=== PATIENT | female | born 1975 | race Two or more races ===

== ENCOUNTER 2017-11-28 23:22 | Emergency (ER) | payer OTHER ==
[~2017-11-28] VITALS: Ht 154.9 cm; Wt 70.3 kg
[2017-11-28] MEDS ORDERED: BP MEDS (23:30)
[2017-11-28] MEDS ORDERED: GLIPIZIDE5 MG ORAL (23:30)
[2017-11-28 23:40] VITALS: BP 124/88
[2017-11-28] MEDS ORDERED: GABAPENTIN300 MG ORAL (23:52)
--- NOTE | 2017-11-28 23:53 | Emergency Room Report ---
History of Present Illness General Chief Complaint: Back Pain-No Injury Source: Patient Present Illness HPI Is a 42-year-old female with a history of diabetes and high blood pressure. She presents with chief complaint of left flank pain. His been ongoing for about a month but worse in the last few days. Worse with movement. Worse with lifting. No trauma. Pain is now 9 out of 10. No incontinence of bowel or urine. No urinary complaint. Denies any fever chills. Denies any nausea vomiting or diarrhea. Allergies: Coded Allergies: No Known Allergies (Unverified , 11/28/17) Patient History Past Medical History: see triage record, old chart reviewed, DM, HTN Past Surgical History: other Pertinent Family History: none Social History: Denies: smoking Last Menstrual Period: unk Now: No Immunizations: other Reviewed Nursing Documentation: PMH: Agreed; PSxH: Agreed Nursing Documentation-PMH Hx Hypertension: Yes Hx Diabetes: Yes Review of Systems Eye: Denies: eye pain, blurred vision ENT: Denies: ear pain, nose congestion, throat swelling Respiratory: Denies: cough, shortness of breath Cardiovascular: Denies: chest pain, palpitations Gastrointestinal: Reports: abdominal pain; Denies: diarrhea, nausea, vomiting Musculoskeletal: Denies: back pain, joint pain Skin: Denies: rash Neurological: Denies: headache, numbness Endocrine: Denies: increased thirst, increased urine Hematologic/Lymphatic: Denies: easy bruising All Other Systems: negative except mentioned in HPI Physical Exam Vital Signs Date Time Temp Pulse Resp B/P (MAP) Pulse Ox O2 Delivery O2 Flow Rate FiO2 11/28/17 23:24 98.4 90 18 124/88 96 Room Air 98.4 vitals normal Sp02 EP Interpretation: reviewed, normal General Appearance: well appearing, no apparent distress, alert Head: normocephalic, atraumatic Eyes: bilateral eye PERRL, bilateral eye EOMI ENT: hearing grossly normal, normal pharynx Neck: full range of motion, supple, no meningismus Respiratory: chest non-tender, lungs clear, normal breath sounds Cardiovascular #1: regular rate, rhythm, no murmur Gastrointestinal: normal bowel sounds, no mass, no organomegaly, no bruit, non- distended, tenderness - left lower quadrant Musculoskeletal: back normal, gait/station normal, normal range of motion Psychiatric: mood/affect normal Skin: warm/dry Medical Decision Making Diagnostic Impression: Primary Impression: Flank pain, acute Additional Impressions: Hyperglycemia due to type 2 diabetes mellitus Qualified Codes: E11.65 - Type 2 diabetes mellitus with hyperglycemia; Z79.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 CT scan unremarkable. Her sugar is very high. She said her hemoglobin A1c is skyhigh. I suspect noncompliance even know she said that she's taking her medication insulin. Per [facility] note, she has a history of noncompliance. Lab Results Impression labs with elevated glucose CT/MRI/US Diagnostic Results CT/MRI/US Diagnostic Results : Imaging Test Ordered: CT abdomen and pelvis Impression negative per radiologist Last Vital Signs Date Time Temp Pulse Resp B/P (MAP) Pulse Ox O2 Delivery O2 Flow Rate FiO2 11/28/17 23:40 98.4 90 18 124/88 96 Room Air 98.4 Status: improved Disposition: HOME, SELF-CARE Condition: Stable Scripts Fluconazole (FLUCONAZOLE) 100 Mg Tablet 100 MG ORAL DAILY, #7 TAB 0 Refills Prov: BARB OTOOLE M.D. 11/29/17 Ibuprofen* (MOTRIN*) 600 Mg Tablet 600 MG ORAL THREE TIMES A DAY, #30 TAB 0 Refills Prov: BARB OTOOLE M.D. 11/29/17 Hydrocodone/Acetaminophen 5-325* (HYDROCODONE/ACETAMINOPHEN 5-325*) 1 Each Tablet 1 TAB ORAL Q6H PRN for For Pain, #20 TAB 0 Refills Prov: BARB OTOOLE M.D. 11/29/17 Patient Instructions: Back Pain, Adult Additional Instructions: Follow-up your [facility] doctor within a week for recheck. Take your medications for diabetes. Return if symptom worsen. BARB OTOOLE M.D. Nov 28, 2017 23:53
[2017-11-28] MEDS ORDERED: OMEPRAZOLE20 M2 ORAL (23:54)
[2017-11-28] MEDS ORDERED: PROTONIX40 MG ORAL (23:54)
[2017-11-28] MEDS ORDERED: CITALOPRAM HBR20 M1 ORAL (23:55)
[2017-11-28] MEDS ORDERED: ASPIR 8181 MG ORAL (23:56)
[2017-11-28] MEDS ORDERED: LISINOPRIL2.5 MG ORAL (23:56)
[2017-11-28] MEDS ORDERED: HUMULIN N100 UNIT/1 SUBQ (23:57)
[2017-11-29] MEDS ORDERED: Ketorolac 30mg Inj IV ONE
[2017-11-29 00:13] LABS: APPEARANCE,URINE CLEAR; BILIRUBIN, URINE NEGATIVE (NEGATIVE); COLOR,URINE PALE YELLOW; EOSINOPHILS % (AUTO) 1.2 % (0.0-3.0); GLUCOSE, URINE (UA) 4+ (NEGATIVE); HEMATOCRIT 43.6 % (37.0-47.0); HEMOGLOBIN 15.2 G/DL (12.0-16.0); KETONES,URINE NEGATIVE (NEGATIVE); LEUKOCYTE ESTERASE ,URINE NEGATIVE (NEGATIVE); LYMPHOCYTES % (AUTO) 53.3 % (20.0-45.0); MEAN CORPUSCULAR VOLUME 91 FL (80-99); MONOCYTES % (AUTO) 5.3 % (1.0-10.0); NEUTROPHILS % (AUTO) 39.1 % (45.0-75.0); NITRITE,URINE NEGATIVE (NEGATIVE); PH,URINE 7 (4.5-8.0); PLATELET COUNT 254 K/UL (150-450); PROTEIN,URINE NEGATIVE (NEGATIVE); RED BLOOD COUNT 4.79 M/UL (4.20-5.40); RED CELL DISTRIBUTION WIDTH 10.3 % (11.6-14.8); UROBILINOGEN,URINE NORMAL MG/DL (0.0-1.0); WHITE BLOOD COUNT 6.6 K/UL (4.8-10.8)
[2017-11-29 00:20] LABS: ANION GAP 8 mmol/L (5-15); BLOOD UREA NITROGEN 13 mg/dL (7-18); CALCIUM 9.1 MG/DL (8.5-10.1); CARBON DIOXIDE 26 MMOL/L (21-32); CHLORIDE 96 MMOL/L (98-107); POTASSIUM 3.8 MMOL/L (3.5-5.1); SODIUM 130 MMOL/L (136-145)
[2017-11-29 00:24] LABS: ALANINE AMINOTRANSFERASE 135 U/L (12-78); ALBUMIN 3.9 G/DL (3.4-5.0); ALKALINE PHOSPHATASE 173 U/L (46-116); ASPARTATE AMINO TRANSFERASE 47 U/L (15-37); BILIRUBIN,TOTAL 0.3 MG/DL (0.2-1.0)
[2017-11-29] MEDS ORDERED: Insulin Human Regular 100units/ml 3ml IV ONE (00:45)
[2017-11-29] MEDS ORDERED: IBUPROFEN600 MG ORAL (01:26)
[2017-11-29] MEDS ORDERED: FLUCONAZOLE100 MG ORAL (01:26)
[2017-11-29] MEDS ORDERED: HYDROCODON-ACE1 EA15 ORAL (01:26)
[2017-11-29 01:40] VITALS: BP 109/69
[2017-11-29 01:45] VITALS: BP 109/69
--- NOTE | 2017-11-29 09:11 | Diagnostic Imaging Report ---
Indication: Abdominal pain and flank pain for one week Technique: Spiral acquisitions obtained through the abdomen and pelvis. No oral contrast utilized, per emergency room physician request No IV contrast utilized, per referring physician request.. Multiplanar reconstructions were generated. Total dose length product 687.33 mGycm. CTDIvol(s) 12.84 mGy. Dose reduction achieved using automated exposure control Comparison: None Findings: The appendix is normal. There is colonic diverticulosis. No evidence of diverticulitis. No small bowel distention. No free or loculated intraperitoneal air or fluid. There is a small fat-containing umbilical hernia. The distal esophagus, stomach, duodenum are unremarkable. Lack of IV contrast limits assessment of solid organs. The liver is grossly unremarkable. The gallbladder is completely nondistended. No biliary ductal dilatation. The pancreas, spleen, adrenals, kidneys are unremarkable. No small bowel distention. No free or loculated intraperitoneal air or fluid is evident. No retroperitoneal or mesenteric mass or adenopathy. No pelvic mass or adenopathy. Uterus and adnexal structures are unremarkable. There is a dominant right ovarian follicle The included lung bases demonstrate some posterior dependent atelectatic changes. The bones are unremarkable Impression: No acute abnormality Colonic diverticulosis. No evidence of diverticulitis. Small fat-containing umbilical hernia, dependent pulmonary atelectatic changes incidentally noted This agrees with the preliminary interpretation provided overnight by [facility] teleradiology service. The CT scanner at [facility] is accredited by the [employer] and the scans are performed using protocols designed to limit radiation exposure to as low as reasonably achievable to attain images of sufficient resolution adequate for diagnostic evaluation.
== END 2017-11-29 01:45 | disposition home or self-care (01) ==
LOC: EMR 23:51
DX: R10.9 Unspecified abdominal pain (principal); E11.65 Type 2 diabetes mellitus with hyperglycemia; I10 Essential (primary) hypertension; R94.5 Abnormal results of liver function studies; B37.49 Other urogenital candidiasis; K57.30 Diverticulosis of large intestine without perforation or abscess without bleeding
CPT/HCPCS: 36415; 74176; 80053; 81003; 81025; 82962; 83690; 85025; 87086; 96360; 96374; 96375; 99284; J1815; J1885